=== PATIENT | male | born 1965 | race Caucasian/White ===

== ENCOUNTER 2019-04-23 11:19 | Outpatient (CLI) | payer OTHER, SELFPAY ==
--- NOTE | ~2019-04-23 | XR_ITS ---
EXAMINATION: XR shoulder LT min 2V DATE: 04/23/2019 11:49 INDICATION: Left shoulder pain. TECHNIQUE: 4 views of left shoulder were obtained. COMPARISON: None. FINDINGS: Bone alignment is normal. No fracture. There is mild osteoarthritis of glenohumeral joint a nd severe osteoarthritis of acromioclavicular joint. IMPRESSION: 1. Polyarticular osteoarthritis. Reviewed, dictated and finalized at location A. 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
--- NOTE | ~2019-04-23 | XR_ITS ---
EXAMINATION:XR cervical spine min 6V DATE: 04/23/2019 11:49 INDICATION: Neck pain TECHNIQUE: AP, lateral in neutral, flexion, extension, lateral swimmers and odontoid views of the cer vical spine are provided. COMPARISON: None FINDINGS: There are 2 mm of retrolisthesis of C5 on C6. No abnormal motion is present with flexion or extension. The odontoid is intact. No fracture is identified. The vertebral body heights are normal. There is mild loss of intervertebral disc space height at C5-6 and C6-7. There is moderate uncoverte bral joint osteoarthritis at C5-6. Small degenerative osteophytes project from the anterior endplates of multiple vertebral bodies. Prevertebral soft tissues are normal. IMPRESSION: 1. Mild cervical spondylosis without acute findings. Reviewed, dictated and finalized at location A. 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
== END 2019-04-23 11:20 | disposition home or self-care (01) ==
PROVIDERS: PCP Family Medicine; Visit Provider Family Medicine
DX: M54.2 Cervicalgia (principal); M25.512 Pain in left shoulder; G89.29 Other chronic pain; M47.812 Spondylosis without myelopathy or radiculopathy, cervical region; M19.012 Primary osteoarthritis, left shoulder
CPT/HCPCS: 72052; 73030

== ENCOUNTER 2019-04-28 15:31 | Outpatient (CLI) | payer OTHER, SELFPAY ==
--- NOTE | ~2019-04-28 | MR_ITS ---
EXAMINATION: MR cervical spine wo con DATE: 04/28/2019 16:27 INDICATION: Left shoulder pain. TECHNIQUE: Magnetic resonance imaging (MRI) of the cervical spine was performed without intravenous c ontrast. Sequences included sagittal T2-weighted FSE, sagittal STIR FSE, sagittal T1-weighted FSE, ax ial MERGE, and axial T2-weighted FSE. COMPARISON: Cervical spine radiographs 04/23/2019 FINDINGS: There is 2 mm retrolisthesis of C5 on C6. Vertebral body heights are normal. There is mildl y decreased disc height at C4-C5 and moderately decreased disc height at C5-C6 and C6-C7. The spinal cord signal intensity is normal. The following disc levels are specifically discussed: C2-C3: The disc is bulging. There is moderate right and mild left uncovertebral joint osteoarthritis. There is mild bilateral facet joint osteoarthritis. There is mild right neural foraminal stenosis. T here is no central canal stenosis. C3-C4: There is a central protrusion. There is mild left uncovertebral joint osteoarthritis. There is mild bilateral facet joint osteoarthritis. There is no neural foraminal stenosis. There is no centra l canal stenosis. C4-C5: The disc is bulging with superimposed left central extrusion. There is mild left uncovertebral joint osteoarthritis. There is mild bilateral facet joint osteoarthritis. There is mild right and mo derate left neural foraminal stenosis. There is mild central canal stenosis with ventral indentation of the spinal cord. C5-C6: The disc is bulging with superimposed central extrusion. There is severe bilateral uncovertebr al joint osteoarthritis. There is mild bilateral facet joint osteoarthritis. There is severe right an d moderate left neural foraminal stenosis. There is mild central canal stenosis. C6-C7: The disc is bulging. There is severe bilateral uncovertebral joint osteoarthritis. There is mo derate right and mild left facet joint osteoarthritis. There is moderate bilateral neural foraminal s tenosis. There is mild central canal stenosis. C7-T1: The disc does not extend beyond the endplate margin. There is mild bilateral uncovertebral laura nt osteoarthritis. There is mild right and moderate left facet joint osteoarthritis. There is mild bi lateral neural foraminal stenosis. There is no central canal stenosis. IMPRESSION: 1. Moderate cervical spondylosis. Reviewed, dictated and finalized at location A. 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
== END 2019-04-28 15:32 | disposition home or self-care (01) ==
PROVIDERS: PCP Family Medicine; Visit Provider Family Medicine
DX: G89.28 Other chronic postprocedural pain (principal); G89.29 Other chronic pain; M25.512 Pain in left shoulder; M47.22 Other spondylosis with radiculopathy, cervical region
CPT/HCPCS: 72141

== ENCOUNTER → 2020-06-17 00:38 | Outpatient (CLI) | payer OTHER, SELFPAY ==
[2020-06-17 21:01] LABS: SARS-CoV-2 RNA PCR Negative
== END ==
PROVIDERS: PCP Family Medicine; Visit Provider Internal Medicine Gastroenterology
DX: Z01.812 Encounter for preprocedural laboratory examination (principal); Z20.822 Contact with and (suspected) exposure to COVID-19
CPT/HCPCS: C9803; U0003; U0005

== ENCOUNTER 2020-06-20 02:43 | Day surgery (SDC) | payer OTHER, SELFPAY ==
[2020-06-10 14:49] VITALS: BMI 34.3
[2020-06-20 08:08] VITALS: BP 158/82; PULSE 89; RESP 20; TEMP 36.2; O2SAT 98; BMI 33.2
[2020-06-20] MEDS: LACTATED RINGERS 1,000 ML 150 ML IV CONT (08:24)
--- NOTE | 2020-06-20 08:34 | PM.HPGS ---
History of Present Illness History of Present Illness Consent: Risks, benefits, and alternatives have been discussed and questions answered. Patient agrees to proceed with procedure. Chief complaint: anemia, gastritis Narrative: Jean Anderson is a 54 year old male who Was found to be anemic with microcytic indices. He does not see blood in his stools. A few years ago he had some colon polyps removed. Denies abdominal pain or vomiting Review of Systems Review of Systems: All systems reviewed & are unremarkable except as noted in HPI and below PMFSH Past Medical History Medical History Anemia (05/11/20) Hemoglobin 8.3, hematocrit 30.6, platelets 609, MCV 67 on 05/11/2020 BMI 32.0-32.9,adult Carpal tunnel syndrome of left wrist Cervical radiculopathy at C5 Cervical spondylosis with radiculopathy Chronic left shoulder pain Chronic neck pain with abnormal neurologic examination Colon cancer screening Encounter for prostate cancer screening Gastritis High cholesterol Hypertension Marijuana use, continuous Musculoskeletal back pain Myocardial infarction Osteoarthritis, multiple sites Parsonage-Zabala syndrome Seasonal allergic rhinitis Seasonal allergies Vision abnormalities Vitamin B12 deficiency anemia (05/11/20) level low at 307 on 05/11/2020 Vitamin D insufficiency Surgical History Surgical History History of heart surgery Family History Family History Other Arthritis Hypertension Social History Social History Smoking packs per day: 2 Smoking cigarettes per day: 40.0 Years smoked: 15 Smoking pack-years: 30.00 Smoking status: Former smoker Tobacco type: cigarettes (10 per day) Smoking end date: 02/26/16 Alcohol intake: current Drinks per week: 36 Living arrangements: with family Gender identity (if verbalized by the patient): Female Spiritual care concerns: No Meds Home Medications and Allergies Home Medications Medication Instructions Recorded Confirmed Type aspirin 81 mg tablet,delayed 81 mg PO DAILY 01/27/19 06/10/20 History release lisinopril 10 mg tablet 10 mg PO DAILY 01/27/19 06/10/20 History cyclobenzaprine 10 mg tablet 10 mg PO TID PRN #90 tablet NS 04/23/19 06/10/20 Rx tramadol 50 mg tablet See Rx Instructions PO Q6H PRN 04/23/19 06/10/20 Rx #120 tablet atorvastatin 40 mg tablet 40 mg PO DAILY #90 tablet 10/14/19 06/10/20 Rx cholecalciferol (vitamin D3) 50 50 mcg PO DAILY 10/14/19 06/10/20 History mcg (2,000 unit) capsule pantoprazole 40 mg tablet,delayed 40 mg PO QAM #30 tablet 05/12/20 06/10/20 Rx release ferrous sulfate 325 mg PO DAILY 06/10/20 06/10/20 History gabapentin 300 mg PO BID PRN 06/10/20 06/10/20 History Allergies Allergy/AdvReac Type Severity Reaction Status Date / Time No Known Allergies Allergy Verified 06/20/20 08:07 Vital Signs Vital Signs - 24 hr 06/20/20 08:08 Temperature 36.2 C L Pulse Rate 89 Respiratory Rate 20 Blood Pressure 158/82 H Pulse Oximetry 98 Exam Const: General: alert Orientation/consciousness: patient oriented x3 Resp: Auscultation: clear to auscultation bilaterally Cardio: Rhythm: regular rhythm GI: GI Palp: Yes Soft to palpation and No Tenderness to palpation present (GI) Neuro: General: patient oriented x3 Assessment and Plan Assessment and plan (1) Anemia: Onset Date: 05/11/20 Code(s): D64.9 - Anemia, unspecified Status: Acute Assessment and Plan: EGD with possible biopsy or dilatation or cautery.Colonoscopy with possible biopsy or polypectomy or cautery or injection of substances.
--- NOTE | 2020-06-20 09:05 | WPDANESEPPF ---
Anes - Initial Pre Proc Eval Procedure: Operation Date: 06/20/20 09:00 Proposed Procedures p Esophagogastroduodenoscopy & Colonoscopy - Jose Luis Vallejo MD Date/Time: 06/20/20 09:05 Surgeon: Jose Luis Vallejo MD Pre Op Diagnosis: anemia, gastritis Patient Data Age: 54 Gender: M Height: 5 ft 3 in Weight: 85 kg Last Vital Signs Temp 97.2 F L 06/20/20 08:08 Pulse 89 06/20/20 08:08 Resp 20 06/20/20 08:08 BP 158/82 H 06/20/20 08:08 Pulse Ox 98 06/20/20 08:08 Allergies Allergy/AdvReac Type Severity Reaction Status Date / Time No Known Allergies Allergy Verified 06/20/20 08:07 Home Medications Medication Instructions Recorded Confirmed Type aspirin 81 mg tablet,delayed 81 mg PO DAILY 01/27/19 06/10/20 History release lisinopril 10 mg tablet 10 mg PO DAILY 01/27/19 06/10/20 History cyclobenzaprine 10 mg tablet 10 mg PO TID PRN #90 tablet NS 04/23/19 06/10/20 Rx tramadol 50 mg tablet See Rx Instructions PO Q6H PRN 04/23/19 06/10/20 Rx #120 tablet atorvastatin 40 mg tablet 40 mg PO DAILY #90 tablet 10/14/19 06/10/20 Rx cholecalciferol (vitamin D3) 50 50 mcg PO DAILY 10/14/19 06/10/20 History mcg (2,000 unit) capsule pantoprazole 40 mg tablet,delayed 40 mg PO QAM #30 tablet 05/12/20 06/10/20 Rx release ferrous sulfate 325 mg PO DAILY 06/10/20 06/10/20 History gabapentin 300 mg PO BID PRN 06/10/20 06/10/20 History Patient hx anesthesia problems: none Family hx anesthesia problems: none PMFSH Past Medical History Medical History Anemia (05/11/20) Hemoglobin 8.3, hematocrit 30.6, platelets 609, MCV 67 on 05/11/2020 BMI 32.0-32.9,adult Carpal tunnel syndrome of left wrist Cervical radiculopathy at C5 Cervical spondylosis with radiculopathy Chronic left shoulder pain Chronic neck pain with abnormal neurologic examination Colon cancer screening Encounter for prostate cancer screening Gastritis High cholesterol Hypertension Marijuana use, continuous Musculoskeletal back pain Myocardial infarction Osteoarthritis, multiple sites Parsonage-Zabala syndrome Seasonal allergic rhinitis Seasonal allergies Vision abnormalities Vitamin B12 deficiency anemia (05/11/20) level low at 307 on 05/11/2020 Vitamin D insufficiency Surgical History Surgical History History of heart surgery Family History Family History Other Arthritis Hypertension Social History Social History Smoking packs per day: 2 Smoking cigarettes per day: 40.0 Years smoked: 15 Smoking pack-years: 30.00 Smoking status: Former smoker Tobacco type: cigarettes (10 per day) Smoking end date: 02/26/16 Alcohol intake: current Drinks per week: 36 Living arrangements: with family Gender identity (if verbalized by the patient): Female Spiritual care concerns: No Anes - Eval Final PreProcedure Day of Procedure 06/20/20 09:05 Patient weight: obese Heart: regular rate and rhythm Lungs: clear to auscultation Airway: Mallampati scale class II Neurological: alert and oriented Last oral intake: >/= 8 hours ASA classification: III Emergent: no Anesthetic plan: proceed Anesthesia type and monitoring: general GIVS and standard monitoring Informed Consent: The patient's anesthetic plan and its attendant risks and benefits were discussed with the patient/family/POA. Questions were solicited and answers provided to the satisfaction of the patient/family/POA.
[2020-06-20 09:36] VITALS: BP 121/78; PULSE 86; RESP 20; O2SAT 98
[2020-06-20 09:46] VITALS: BP 125/77; PULSE 87; RESP 20; O2SAT 99
[2020-06-20 09:56] VITALS: BP 140/72; PULSE 84; RESP 20; O2SAT 100
== END 2020-06-20 10:00 | disposition home or self-care (01) ==
PROVIDERS: PCP Family Medicine; Visit Provider Internal Medicine Gastroenterology
PROC: 0DJ08ZZ Inspection of Upper Intestinal Tract, Via Natural or Artificial Opening Endoscopic (ICD-10-PCS; CPT 43235; principal; 2020-06-20 09:00)
DX: D50.9 Iron deficiency anemia, unspecified (principal); K29.80 Duodenitis without bleeding; K29.70 Gastritis, unspecified, without bleeding; K57.30 Diverticulosis of large intestine without perforation or abscess without bleeding; I10 Essential (primary) hypertension; I25.2 Old myocardial infarction; D51.9 Vitamin B12 deficiency anemia, unspecified; E78.00 Pure hypercholesterolemia, unspecified; E55.9 Vitamin D deficiency, unspecified; M54.2 Cervicalgia; M25.512 Pain in left shoulder; G89.29 Other chronic pain; G54.5 Neuralgic amyotrophy; J30.9 Allergic rhinitis, unspecified; F12.90 Cannabis use, unspecified, uncomplicated; Z87.891 Personal history of nicotine dependence; Z86.010 Personal history of colon polyps
CPT/HCPCS: 43239; 45378; 88305; C9803; J2001; J2704; J7120; U0003; U0005

== ENCOUNTER 2024-10-16 01:31 | Day surgery (SDC) | payer OTHER, SELFPAY ==
[2024-10-12 13:47] VITALS: BMI 35.2
[2024-10-16 08:12] VITALS: BP 127/50; PULSE 66; RESP 16; TEMP 36; O2SAT 97; BMI 33.6
[2024-10-16] MEDS: SIMETHICONE ORAL SUSPENSION 20 MG/0.3 ML 30 ML BOTTLE 1.8 ML PO (08:30)
[2024-10-16] MEDS: LACTATED RINGERS 1,000 ML 150 ML IV CONT (08:30)
--- NOTE | 2024-10-16 08:53 | WPDANESEPPF ---
Anes - Initial Pre Proc Eval Procedure: Operation Date: 10/16/24 09:30 Proposed Procedures p Esophagogastroduodenoscopy - Eliud Izaguirre MD Date/Time: 10/16/24 08:53 Surgeon: Eliud Izaguirre MD Pre Op Diagnosis: Iron deficiency anemia secondary to blood loss ( Patient Data Age: 59 Gender: M Height: 1.63 m Weight: 88.9 kg Last Vital Signs Temp 36.0 C L 10/16/24 08:12 Pulse 66 10/16/24 08:12 Resp 16 10/16/24 08:12 BP 127/50 L 10/16/24 08:12 Pulse Ox 97 10/16/24 08:12 O2 Del Method Room Air 10/16/24 08:12 Allergies Allergy/AdvReac Type Severity Reaction Status Date / Time pantoprazole (From Protonix) AdvReac Intermediate severe GI Verified 10/16/24 08:19 upset Jun, 2020 Home Medications ?Medication ?Instructions ?Recorded ?Confirmed ?Type aspirin 81 mg tablet,delayed 81 mg PO DAILY 01/27/19 10/16/24 History release (Adult Low Dose Aspirin) atorvastatin 40 mg tablet 40 mg PO DAILY #90 tabs 10/14/19 10/16/24 Rx cyanocobalamin (vitamin B-12) 1,000 mcg PO DAILY 09/28/20 10/16/24 History 1,000 mcg tablet cholecalciferol (vitamin D3) 50 2,000 unit PO DAILY 04/17/21 10/16/24 History mcg (2,000 unit) capsule lisinopril 10 mg tablet 10 mg PO DAILY 04/26/22 10/16/24 History famotidine 40 mg tablet 40 mg PO BID #180 tabs 12/11/23 10/16/24 Rx gabapentin 300 mg capsule 300 mg PO BID #180 caps 12/11/23 10/16/24 Rx icosapent ethyl 1 gram capsule 2 g PO BID 12/11/23 10/16/24 History (Vascepa) ferrous sulfate 325 mg (65 mg 325 mg PO BID 07/07/24 10/12/24 History iron) tablet (Iron (ferrous sulfate)) cyclobenzaprine 10 mg tablet 10 mg PO TID PRN muscle spasm #90 08/17/24 10/12/24 Rx tabs Patient hx anesthesia problems: none Family hx anesthesia problems: none Results Review: All pre-operative results and documents have been reviewed as part of the pre-operative evaluation. [facility] Past Medical History Medical History Chronic bilateral low back pain without sciatica Chronic depression Thrombocytosis (~04/29/23) platelets 444 with MCV elevated at 104.4 on 04/29/2023. Platelets normal at 363 on 11/08/2023. Platelets 490 on 07/01/2024. BMI 34.0-34.9,adult Obesity (BMI 30-39.9) Edentulous Obesity (BMI 30.0-34.9) BMI 35.0-35.9,adult Iron deficiency anemia due to chronic blood loss iron 55, TIBC 429, 13% saturation, ferritin 11, decreased from 41 on 09/28/2020. Iron 73 with 22% saturation and ferritin 74 with Hemoglobin 13.4 on 09/21/2021. Iron 57 with 15% saturation and ferritin 52 with hemoglobin 13.0 on 11/06/2022. iron 55 with 13% saturation and ferritin 47 with hemoglobin 13.5 on 04/29/2023. Iron level normal at 85 with 21% saturation and ferritin 38 with hemoglobin 14.5 on 11/08/2023. iron 34 with 7% saturation and ferritin 5 with hemoglobin 11.2 on 07/01/2024. BMI 33.0-33.9,adult Gastro-esophageal reflux disease without esophagitis Duodenitis (06/20/20) EGD on 06/20/2020 with duodenitis Gastritis Anemia (05/11/20) Hemoglobin 8.3, hematocrit 30.6, platelets 609, MCV 67 on 05/11/2020. Hemoglobin 13.0 with MCV normal at 97.5 on 09/28/2020. Hemoglobin 13.0 with MCV 101.9, vitamin B12 583, folic acid 13.4, iron 57 with 15% saturation and ferritin 52 On 11/06/2022. Hemoglobin 13.5 on 04/29/2023. Vitamin B12 deficiency anemia (05/11/20) level low at 307 on 05/11/2020. Level normal at 709 with hemoglobin 13.4 and folic acid 6.0 on 09/21/2021. Normal at 583 with folic acid 13.4 on 11/06/2022. Hemoglobin 14.5 with vitamin B12 717 on 11/08/2023. Marijuana use, continuous Seasonal allergic rhinitis BMI 32.0-32.9,adult Vitamin D insufficiency Colon cancer screening diverticulosis without bleeding and otherwise normal 06/20/2020 Encounter for prostate cancer screening PSA 0.65 on 09/21/2021. PSA 0.63 on 11/06/2022. PSA 0.74 on 11/08/2023. Cervical spondylosis with radiculopathy Carpal tunnel syndrome of left wrist Parsonage-Zabala syndrome Seasonal allergies Myocardial infarction Hypertension High cholesterol Vision abnormalities Cervical radiculopathy at C5 Chronic left shoulder pain Chronic neck pain with abnormal neurologic examination Osteoarthritis, multiple sites Musculoskeletal back pain Surgical History Surgical History History of heart surgery Family History Family History Other Arthritis Hypertension Social History Social History Smoking packs per day: 0.5 Smoking cigarettes per day: 10.0 Years smoked: 40 Smoking pack-years: 20.00 Smoking status: Current every day smoker Tobacco type: cigarettes Smoking end date: 02/26/16 Alcohol intake: current Drinks per week: 48 Alcohol use details: beer Substance use: current Substance use type: marijuana Other substance usage details: daily use Current Housing: Decline to Answer Concerned About Future Housing: Decline to Answer Difficulty Paying Gas/Electric Bills: Decline to Answer Difficulty Paying for Meds: Decline to Answer Currently Unemployed: Decline to Answer Education: Decline to Answer Difficulty w/ Childcare or Family Care: Decline to Answer Living arrangements: with family Gender identity (if verbalized by the patient): Male Spiritual care concerns: No Anes - Eval Final PreProcedure Day of Procedure 10/16/24 08:53 Patient weight: obese Heart: regular rate and rhythm Lungs: clear to auscultation Airway: Mallampati scale class II Neurological: alert and oriented Last oral intake: >/= 8 hours ASA classification: III Emergent: no Anesthetic plan: proceed Anesthesia type and monitoring: general GIVS and standard monitoring Results Review: All pre-operative results and documents have been reviewed as part of the pre-operative evaluation. Informed Consent: The patient's anesthetic plan and its attendant risks and benefits were discussed with the patient/family/POA. Questions were solicited and answers provided to the satisfaction of the patient/family/POA.
--- NOTE | 2024-10-16 09:18 | PM.IMHP ---
H&P: HPI History of Present Illness Date/Time: 10/16/24 09:18 Chief Complaint: Iron deficiency anemia Narrative: the patient has been noticed to have decrease in his iron saturation. He states having occasional rectal bleeding and diffuse nonspecific epigastric discomfort. He is referred for EGD. Review of Systems Review of Systems: All systems reviewed & are unremarkable except as noted in HPI and below PMFSH Past Medical History Medical History Chronic bilateral low back pain without sciatica Chronic depression Thrombocytosis (~04/29/23) platelets 444 with MCV elevated at 104.4 on 04/29/2023. Platelets normal at 363 on 11/08/2023. Platelets 490 on 07/01/2024. BMI 34.0-34.9,adult Obesity (BMI 30-39.9) Edentulous Obesity (BMI 30.0-34.9) BMI 35.0-35.9,adult Iron deficiency anemia due to chronic blood loss iron 55, TIBC 429, 13% saturation, ferritin 11, decreased from 41 on 09/28/2020. Iron 73 with 22% saturation and ferritin 74 with Hemoglobin 13.4 on 09/21/2021. Iron 57 with 15% saturation and ferritin 52 with hemoglobin 13.0 on 11/06/2022. iron 55 with 13% saturation and ferritin 47 with hemoglobin 13.5 on 04/29/2023. Iron level normal at 85 with 21% saturation and ferritin 38 with hemoglobin 14.5 on 11/08/2023. iron 34 with 7% saturation and ferritin 5 with hemoglobin 11.2 on 07/01/2024. BMI 33.0-33.9,adult Gastro-esophageal reflux disease without esophagitis Duodenitis (06/20/20) EGD on 06/20/2020 with duodenitis Gastritis Anemia (05/11/20) Hemoglobin 8.3, hematocrit 30.6, platelets 609, MCV 67 on 05/11/2020. Hemoglobin 13.0 with MCV normal at 97.5 on 09/28/2020. Hemoglobin 13.0 with MCV 101.9, vitamin B12 583, folic acid 13.4, iron 57 with 15% saturation and ferritin 52 On 11/06/2022. Hemoglobin 13.5 on 04/29/2023. Vitamin B12 deficiency anemia (05/11/20) level low at 307 on 05/11/2020. Level normal at 709 with hemoglobin 13.4 and folic acid 6.0 on 09/21/2021. Normal at 583 with folic acid 13.4 on 11/06/2022. Hemoglobin 14.5 with vitamin B12 717 on 11/08/2023. Marijuana use, continuous Seasonal allergic rhinitis BMI 32.0-32.9,adult Vitamin D insufficiency Colon cancer screening diverticulosis without bleeding and otherwise normal 06/20/2020 Encounter for prostate cancer screening PSA 0.65 on 09/21/2021. PSA 0.63 on 11/06/2022. PSA 0.74 on 11/08/2023. Cervical spondylosis with radiculopathy Carpal tunnel syndrome of left wrist Parsonage-Zabala syndrome Seasonal allergies Myocardial infarction Hypertension High cholesterol Vision abnormalities Cervical radiculopathy at C5 Chronic left shoulder pain Chronic neck pain with abnormal neurologic examination Osteoarthritis, multiple sites Musculoskeletal back pain Surgical History Surgical History History of heart surgery Family History Family History Other Arthritis Hypertension Social History Social History Smoking packs per day: 0.5 Smoking cigarettes per day: 10.0 Years smoked: 40 Smoking pack-years: 20.00 Smoking status: Current every day smoker Tobacco type: cigarettes Smoking end date: 02/26/16 Alcohol intake: current Drinks per week: 48 Alcohol use details: beer Substance use: current Substance use type: marijuana Other substance usage details: daily use Current Housing: Decline to Answer Concerned About Future Housing: Decline to Answer Difficulty Paying Gas/Electric Bills: Decline to Answer Difficulty Paying for Meds: Decline to Answer Currently Unemployed: Decline to Answer Education: Decline to Answer Difficulty w/ Childcare or Family Care: Decline to Answer Living arrangements: with family Gender identity (if verbalized by the patient): Male Spiritual care concerns: No Meds Home Medications and Allergies Home Medications ?Medication ?Instructions ?Recorded ?Confirmed ?Type aspirin 81 mg tablet,delayed 81 mg PO DAILY 01/27/19 10/16/24 History release (Adult Low Dose Aspirin) atorvastatin 40 mg tablet 40 mg PO DAILY #90 tabs 10/14/19 10/16/24 Rx cyanocobalamin (vitamin B-12) 1,000 mcg PO DAILY 09/28/20 10/16/24 History 1,000 mcg tablet cholecalciferol (vitamin D3) 50 2,000 unit PO DAILY 04/17/21 10/16/24 History mcg (2,000 unit) capsule lisinopril 10 mg tablet 10 mg PO DAILY 04/26/22 10/16/24 History famotidine 40 mg tablet 40 mg PO BID #180 tabs 12/11/23 10/16/24 Rx gabapentin 300 mg capsule 300 mg PO BID #180 caps 12/11/23 10/16/24 Rx icosapent ethyl 1 gram capsule 2 g PO BID 12/11/23 10/16/24 History (Vascepa) ferrous sulfate 325 mg (65 mg 325 mg PO BID 07/07/24 10/12/24 History iron) tablet (Iron (ferrous sulfate)) cyclobenzaprine 10 mg tablet 10 mg PO TID PRN muscle spasm #90 08/17/24 10/12/24 Rx tabs Allergies Allergy/AdvReac Type Severity Reaction Status Date / Time pantoprazole (From Protonix) AdvReac Intermediate severe GI Verified 10/16/24 08:19 upset Jun, 2020 Vital Signs Vital Signs - 24 hr 10/16/24 08:12 Temperature 96.8 F L Pulse Rate 66 Respiratory Rate 16 Blood Pressure 127/50 L Pulse Oximetry 97 Oxygen Delivery Room Air Exam Const: General: cooperative and healthy appearing Resp: Effort & Inspection: normal respiratory effort and able to speak in complete sentences Auscultation: clear to auscultation bilaterally Cardio: Rate: regular rate Rhythm: regular rhythm GI: Inspection: normal to inspection GI Palp: No No hepatosplenomegaly present Auscultation: normal bowel sounds Rectal Exam: deferred Skin: General skin exam: normal color Psych: Appearance: grossly normal Mental Status: mental status grossly normal Assessment and Plan Assessment and plan (1) Iron deficiency: Code(s): E61.1 - Iron deficiency Status: Acute Assessment and Plan: The patient is deemed a good candidate for the procedure. Consent signed. Will proceed.
[2024-10-16] MEDS: BENZOCAINE (*SP) 60 ML SPRAY CAN (HURRICAINE) 1 SPRAY MUCOUS MEM (09:29)
--- NOTE | 2024-10-16 09:41 | S_PTH ---
PATIENT: Jean Anderson LOC: [facility] #:[id number] AGE/SX: 59/M ROOM: RE10/16/[address]: Eliud Izaguirre MD : 1965 BED: DIS: 10/16/2024 SPEC #: [id number] RECD: 10/16/24 10:20 STATUS: PETER REQ #: [id number] AMRITA: 10/16/24 09:[address]: Eliud Izaguirre DEPT: [facility] Surgical RECD BY: Alissa Lazcano ENTERED: 10/16/24 10:20 SP TYPE: Surgical OTHR DR: Abelino Porter MD Tissues: A - Gastric Biopsy B - Gastric Biopsy Procedures: Hematoxylin and Eosin Stain Gross and Microscopic Level 4
[2024-10-16 09:46] VITALS: BP 118/63; PULSE 89; RESP 14; O2SAT 96
[2024-10-16 09:56] VITALS: BP 123/68; PULSE 85; RESP 13; O2SAT 97
[2024-10-16 10:06] VITALS: BP 125/69; PULSE 86; RESP 20; O2SAT 97
== END 2024-10-16 10:10 | disposition home or self-care (01) ==
PROVIDERS: PCP Family Medicine; Referring Provider Family Medicine; Visit Provider Internal Medicine Gastroenterology
PROC: 0DJ08ZZ Inspection of Upper Intestinal Tract, Via Natural or Artificial Opening Endoscopic (ICD-10-PCS; CPT 43239; principal; 2024-10-16 09:30)
DX: E61.1 Iron deficiency (principal); K29.51 Unspecified chronic gastritis with bleeding; K21.9 Gastro-esophageal reflux disease without esophagitis; Q27.33 Arteriovenous malformation of digestive system vessel; D64.9 Anemia, unspecified; E53.8 Deficiency of other specified B group vitamins; E55.9 Vitamin D deficiency, unspecified; I10 Essential (primary) hypertension; I25.2 Old myocardial infarction; E78.00 Pure hypercholesterolemia, unspecified; M15.0 Primary generalized (osteo)arthritis; D75.839 Thrombocytosis, unspecified; F32.A Depression, unspecified; G89.29 Other chronic pain; M54.50 Low back pain, unspecified; M25.512 Pain in left shoulder; F12.90 Cannabis use, unspecified, uncomplicated; F17.210 Nicotine dependence, cigarettes, uncomplicated; E66.9 Obesity, unspecified; Z68.33 Body mass index [BMI] 33.0-33.9, adult; Z79.82 Long term (current) use of aspirin; Z98.890 Other specified postprocedural states
CPT/HCPCS: 43239; 43270; 88305; J2003; J2704; J7120

== ENCOUNTER 2024-11-25 05:28 | Outpatient (CLI) | payer OTHER, SELFPAY ==
--- NOTE | 2024-11-20 11:22 | SUR.PREOP ---
Multiple messages and an email have been left for patient to reach us about his capsule endoscopy that is scheduled for 11/25/2024. No response from patient at this time.
--- NOTE | 2024-11-25 06:15 | SUR.OPER ---
Patient brought to GI Lab. Instructions for patient undergoing Capsule Endoscopy reviewed with patient. Consent form signed. Sensor array applied to patient's abdomen and connected to recorded. Patient swallowed capsule with ozs of water infused with Simethicone. Patient instructed they may have clear liquids at 0830 this AM and eat or drink at 1030 this AM. Patient instructed to return to GI Lab at 1500 this afternoon for removal of recording device and to call [phone] or to return to the hospital if any nausea and vomiting or abdominal pain is experienced.
--- NOTE | 2024-11-26 06:57 | SUR.PREOP ---
Patient returned to the GI Lab at 1425 on 11-25-24 for recorder box removal. Patient voiced no complaints. States they have understanding of instructions. Patient left ambulatory.
== END 2024-11-25 05:29 | disposition home or self-care (01) ==
PROVIDERS: PCP Family Medicine; Referring Provider Internal Medicine Gastroenterology; Visit Provider Internal Medicine Gastroenterology
PROC: (CPT 91110; principal; 2024-11-25 07:00)
DX: K31.819 Angiodysplasia of stomach and duodenum without bleeding (principal); Z01.818 Encounter for other preprocedural examination
CPT/HCPCS: 91110